=== PATIENT | male | born 1965 | race African-American/Black ===

== ENCOUNTER 2016-06-26 14:54 | Inpatient (IN) | payer OTHER ==
[2016-06-26 17:49] VITALS: BMI 20.3
--- NOTE | 2016-06-26 19:26 | HP ---
COWS - Scale Resting Pulse: 1= PA 81-100 Sweatin= Chills/Flushing Restless Observation: 1= Difficult to Sit Still Pupil Size: 0= Normal to Room Light Bone or Joint Aches: 1= Mild Discomfort Runny Nose/ Eye Tearin= Nasal Congestion GI Upset > 30mins: 2= Nausea/Diarrhea Tremor Observation: 2= Slight Tremor Visible Yawning Observation: 1= 1-2x During Session Anxiety or Irritability: 1=Feels Anxious/Irritable Goose Flesh Skin: 3=Piloerection COWS Score: 14 Admission [facility] Chief Complaint: WITHDRAWAL SX Allergies/Adverse Reactions: Allergies Allergy/AdvReac Type Severity Reaction Status Date / Time No Known Allergies Allergy Verified 06/26/16 19:57 History of Present Illness: 51 YEARS OLD MALE WITH LONG HISTORY OF OPIATE NICOTINE DEPENDENCE DENIES MEDICAL DENIES MENTAL IS ADMITTED TO DETOX Exam Limitations: No Limitations - Ebola screening Have you traveled outside of the country in the last 21 days: No Have you had contact with anyone from an Ebola affected area: No Have you been sick,other than usual withdrawal symptoms: No Do you have a fever: No - Review of Systems Constitutional: Chills, Loss of Appetite, Changes in sleep, Unintentional Wgt. Loss, Unexplained wgt Loss EENT: reports: No Symptoms Reported, Hearing Loss (LEFT EAR) Respiratory: reports: SOB with Exertion Cardiac: reports: No Symptoms Reported GI: reports: Diarrhea, Nausea, Poor Appetite, Poor Fluid Intake, Abdominal cramping : reports: No Symptoms Reported Musculoskeletal: reports: Back Pain, Joint Pain, Muscle Pain, Neck Pain Integumentary: reports: No Symptoms Reported Neuro: reports: Tremors Endocrine: reports: No Symptoms Reported Hematology: reports: No Symptoms Reported Psychiatric: reports: Judgement Intact, Mood/Affect Appropiate, Orientated x3 Other Systems: Reviewed and Negative Patient History - Patient Medical History Hx Anemia: No Hx Asthma: No Hx Chronic Obstructive Pulmonary Disease (COPD): No Hx Cancer: No Hx Cardiac Disorders: No Hx Congestive Heart Failure: No Hx Hypertension: No Hx Hypercholesterolemia: No Hx Pacemaker: No HX Cerebrovascular Accident: No Hx Seizures: No Hx Dementia: No Hx Diabetes: No Hx Gastrointestinal Disorders: No Hx Liver Disease: No Hx Genitourinary Disorders: No Hx Sexually Transmitted Disorders: No Hx Renal Disease (ESRD): No Hx Thyroid Disease: No Hx Human Immunodeficiency Virus (HIV): No Hx Hepatitis C: No Hx Depression: No Hx Suicide Attempt: No Hx Bipolar Disorder: No Hx Schizophrenia: No - Patient Surgical History Past Surgical History: Yes Hx Neurologic Surgery: No Hx Cataract Extraction: No Hx Cardiac Surgery: No Hx Lung Surgery: No Hx Breast Surgery: No Hx Breast Biopsy: No Hx Abdominal Surgery: No Hx Appendectomy: No Hx Cholecystectomy: No Hx Genitourinary Surgery: No Hx Orthopedic Surgery: Yes (RT ARM) Other Surgical History: RT ARM @14YRS Anesthesia Reaction: No - PPD History Previous Implant?: Yes Documented Results: Negative w/o proof Implanted On Prior R Admission?: Yes Date: 10/31/15 PPD to be Administered?: No - Smoking Cessation Smoking history: Current every day smoker Have you smoked in the past 12 months: Yes Aproximately how many cigarettes per day: 20 Cigars Per Day: 0 Hx Chewing Tobacco Use: No Initiated information on smoking cessation: Yes 'Breaking Loose' booklet given: 06/26/16 - Substance & Tx. History Hx Alcohol Use: No Hx Substance Use: Yes Substance Use Type: Cocaine, Marijuana, Opiates Hx Substance Use Treatment: Yes - Substances Abused Heroin Route: Inhalation Frequency: Daily Amount used: 20 BAGS Date of Last Use: 06/26/16 Family Disease History - Family Disease History Family History: Denies Admission Physical Exam [facility] - Vital Signs Vital Signs: Vital Signs - 24 hr 06/26/16 17:45 Temperature 98.5 F Pulse Rate 86 Respiratory 20 Rate Blood Pressure 124/87 - Physical General Appearance: Yes: Appropriately Dressed, Mild Distress, Thin, Tremorous, Irritable, Sweating, Anxious HEENTM: Yes: Hearing grossly Normal, Normal ENT Inspection, Normocephalic, Normal Voice Respiratory: Yes: Chest Non-Tender, Lungs Clear, Normal Breath Sounds, No Respiratory Distress, No Accessory Muscle Use Neck: Yes: Supple, Trachea in good position Breast: Yes: Breasts Symetrical Cardiology: Yes: Regular Rhythm, Regular Rate, S1, S2 Abdominal: Yes: Non Tender, Soft Genitourinary: Yes: Within Normal Limits Back: Yes: Normal Inspection Musculoskeletal: Yes: full range of Motion, Gait Steady, Back pain, Muscle Pain Extremities: Yes: Normal Range of Motion, Non-Tender, Tremors Neurological: Yes: Fully Oriented, Alert, Motor Strength 5/5, Normal Mood/Affect , Normal Response Integumentary: Yes: Warm Lymphatic: Yes: Within Normal Limits - Addiitonal Findings: PATIENT IS UNCOOPERATIVE THROUGH OUT THE PHYSICAL EXAMINE OPPOSITIONAL - Diagnostic (1) Nicotine dependence Current Visit: Yes Status: Acute Qualifiers: Nicotine product type: cigarettes Substance use status: in withdrawal Qualified Code(s): F17.213 - Nicotine dependence, cigarettes, with withdrawal (2) Opioid dependence with withdrawal Current Visit: Yes Status: Acute (3) Cocaine dependence, uncomplicated Current Visit: Yes Status: Chronic (4) Cannabis dependence, uncomplicated Current Visit: Yes Status: Chronic (5) Left ear hearing loss Current Visit: Yes Status: Chronic Qualifiers: Hearing loss type: conductive Contralateral hearing status: unspecified Qualified Code(s): H90.12 - Conductive hearing loss, unilateral, left ear, with unrestricted hearing on the contralateral side Cleared for Admission [facility] - Detox or Rehab [facility] Level of Care: Medically Managed Detox Regimen/Protocol: Methadone [facility] Breath Alcohol Content Breath Alcohol Content: 0 Urine Drug Screen - Results Drug Screen Negative: No Urine Drug Screen Results: THC-Marijuana, MABEL-Cocaine, OPI-Opiates, AMP- Amphetamines
[2016-06-26] MEDS ORDERED: MAG HYDROX/AL HYDROX/SIMETH 30 ML UNIT-DOSE CUP PO PRN (19:31)
[2016-06-26] MEDS ORDERED: LOPERAMIDE HCL 2 MG CAPSULE PO PRN (19:31)
[2016-06-26] MEDS ORDERED: NICOTINE POLACRILEX 4 MG GUM BC PRN (19:31)
[2016-06-26] MEDS ORDERED: MAGNESIUM HYDROX 2400MG/30ML ORAL SUSPENSION 30 ML CUP PO PRN (19:31)
[2016-06-26] MEDS ORDERED: diphenhydrAMINE HCL 50 MG CAPSULE PO PRN (19:31)
[2016-06-26] MEDS ORDERED: MAGNESIUM CITRATE 300 ML BOTTLE PO PRN (19:31)
[2016-06-26] MEDS ORDERED: MENTHOL/PHENOL 1 EACH UD MM PRN (19:31)
[2016-06-26] MEDS ORDERED: guaiFENesin/D-METHORPHAN HB 10 ML UNIT-DOSE CUPS PO PRN (19:31)
[2016-06-26] MEDS ORDERED: IBUPROFEN 400 MG TABLET (FP) PO PRN (19:31)
[2016-06-26] MEDS ORDERED: METHADONE HCL 10 MG TABLET (FOR DETOX USE ONLY) PO ONE ×2 (19:31→23:00)
[2016-06-26] MEDS ORDERED: ACETAMINOPHEN 325 MG TABLET (FP) PO PRN (19:31)
[2016-06-26] MEDS ORDERED: P-EPHED 60MG/TRIPROLIDI 2.5MG TABLET PO PRN (19:31)
[2016-06-26] MEDS: diazePAM 5 MG TABLET PO PRN (21:18)
[2016-06-26] MEDS: THIAMINE HCL 100 MG TABLET (FP) PO SCH (23:03)
[2016-06-27 03:01] LABS: URINE APPEARANCE CLEAR; URINE BILIRUBIN NEGATIVE (NEGATIVE); URINE BLOOD NEGATIVE (NEGATIVE); URINE COLOR YELLOW; URINE GLUCOSE (UA) NEGATIVE (NEGATIVE); URINE KETONE NEGATIVE (NEGATIVE); URINE LEUK ESTERASE NEGATIVE (NEGATIVE); URINE NITRITE NEGATIVE (NEGATIVE); URINE PROTEIN NEGATIVE (NEGATIVE); URINE UROBILINOGEN NEGATIVE E.U./dl (0.2-1.0)
[2016-06-27 09:52] LABS: MCH 27.3 pg (25.7-33.7); MCHC 32.4 g/dl (32.0-35.9); MEAN CELL VOLUME 84.3 fl (80-96); MEAN PLT VOLUME 8.7 fl (7.5-11.1); PLATELET COUNT 282 K/MM3 (134-434); RDW 14.8 % (11.9-15.9); WHITE BLOOD COUNT 8.1 K/mm3 (4.0-10.0)
[2016-06-27 09:59] LABS: ALBUMIN 2.9 g/dl (3.4-5.0)
[2016-06-27] MEDS ORDERED: METHADONE HCL 10 MG TABLET (FOR DETOX USE ONLY) PO ONE (10:00)
--- NOTE | 2016-06-27 10:01 | PN ---
[facility] CIWA - CIWA Score Nausea/Vomitin-No Nausea/No Vomiting Muscle Tremors: 4-Moderate,w/Arms Extend Anxiety: 4-Mod. Anxious/Guarded Agitation: 4-Moderately Restless Paroxysmal Sweats: 2 Orientation: 0-Oriented Tacttile Disturbances: 3-Moderate Itch/Numb/Burn Auditory Disturbances: 0-None Visual Disturbances: 0-None Headache: 0-None Present CIWA-Ar Total Score: 17 BHS Progress Note (SOAP) Subjective: ANXIETY,SWEATS,FATIGUE. Objective: 06/27/16 10:00 Vital Signs Temperature 97.2 F L 06/27/16 09:21 Pulse Rate 71 06/27/16 09:21 Respiratory Rate 18 06/27/16 09:21 Blood Pressure 113/78 06/27/16 09:21 O2 Sat by Pulse Oximetry (%) Laboratory Last Values WBC 8.1 K/mm3 (4.0-10.0) 06/27/16 07:00 RBC 4.45 M/mm3 (4.00-5.60) 06/27/16 07:00 Hgb 12.1 GM/dL (11.7-16.9) 06/27/16 07:00 Hct 37.5 % (35.4-49) 06/27/16 07:00 MCV 84.3 fl (80-96) 06/27/16 07:00 MCHC 32.4 g/dl (32.0-35.9) 06/27/16 07:00 RDW 14.8 % (11.9-15.9) 06/27/16 07:00 Plt Count 282 K/MM3 (134-434) 06/27/16 07:00 MPV 8.7 fl (7.5-11.1) 06/27/16 07:00 Urine Color Yellow 06/26/16 23:10 Urine Appearance Clear 06/26/16 23:10 Urine pH 5.0 (5.0-8.0) 06/26/16 23:10 Ur Specific [place] 1.021 (1.001-1.035) 06/26/16 23:10 Urine Protein Negative (NEGATIVE) 06/26/16 23:10 Urine Glucose (UA) Negative (NEGATIVE) 06/26/16 23:10 Urine Ketones Negative (NEGATIVE) 06/26/16 23:10 Urine Blood Negative (NEGATIVE) 06/26/16 23:10 Urine Nitrite Negative (NEGATIVE) 06/26/16 23:10 Urine Bilirubin Negative (NEGATIVE) 06/26/16 23:10 Urine Urobilinogen Negative E.U./dl (0.2-1.0) 06/26/16 23:10 Ur Leukocyte Esterase Negative (NEGATIVE) 06/26/16 23:10 Assessment: 06/27/16 10:00 WITHDRAWAL SX Plan: CONTINUE DETOX
[2016-06-27 10:27] LABS: ALK PHOS 93 U/L (45-117); ANION GAP 5 (8-16); BILIRUBIN,TOTAL 0.2 mg/dL (0.2-1.0); CO2 28 mmol/L (21-32); COCKROFT - GAULT 104.91; CREATININE 0.7 mg/dL (0.7-1.3); GLUCOSE,RANDOM 104 mg/dL (74-106); SGOT/AST 23 U/L (15-37); SGPT/ALT 26 U/L (12-78); TOT PROT 6.8 g/dl (6.4-8.2)
[2016-06-27] MEDS: PRENATAL VITAMINS W/ FOLIC ACID TABLET (FP) PO SCH (10:34)
[2016-06-27] MEDS: NICOTINE 21 MG/24 HOURS TOPICAL PATCH TD SCH (10:34)
--- NOTE | 2016-06-27 13:12 | EKG ---
Test Reason : Blood Pressure : / mmHG Vent. Rate : 077 BPM Atrial Rate : 077 BPM P-R Int : 200 ms QRS Dur : 104 ms QT Int : 372 ms P-R-T Axes : 073 076 071 degrees QTc Int : 420 ms NORMAL SINUS RHYTHM POSSIBLE LEFT ATRIAL ENLARGEMENT LEFT VENTRICULAR HYPERTROPHY RSR' OR QR PATTERN IN V1 SUGGESTS RIGHT VENTRICULAR CONDUCTION DELAY ABNORMAL ECG NO PREVIOUS ECGS AVAILABLE Confirmed by CRISTINO NIETO, MARI ([id number]) on 06/27/2016 1:12:34 PM Referred By: Confirmed By:MARI GREGG MD
[2016-06-27] MEDS: diazePAM 5 MG TABLET PO PRN (22:28)
[2016-06-27] MEDS: THIAMINE HCL 100 MG TABLET (FP) PO SCH (22:28)
[2016-06-28] MEDS ORDERED: METHADONE HCL 5 MG TABLET (FOR DETOX USE ONLY) PO ONE (10:00)
[2016-06-28] MEDS ORDERED: TRIMETHOBENZAMIDE HCL 200MG/2ML INJ IM PRN (10:36)
[2016-06-28] MEDS ORDERED: ONDANSETRON *ODT* 4 MG TABLET SL PRN (10:36)
[2016-06-28] MEDS: NICOTINE 21 MG/24 HOURS TOPICAL PATCH TD SCH (10:40)
[2016-06-28] MEDS: PRENATAL VITAMINS W/ FOLIC ACID TABLET (FP) PO SCH (10:40)
--- NOTE | 2016-06-28 11:57 | PN ---
[facility] CIWA - CIWA Score Nausea/Vomitin-Int. Nausea w/Dry Heave Muscle Tremors: 5 Anxiety: 5 Agitation: 4-Moderately Restless Paroxysmal Sweats: 1-Minimal Palms Moist Orientation: 0-Oriented Tacttile Disturbances: 3-Moderate Itch/Numb/Burn Auditory Disturbances: 0-None Visual Disturbances: 0-None Headache: 0-None Present CIWA-Ar Total Score: 22 BHS Progress Note (SOAP) Subjective: NAUSEA, ANXIETY,TREMORS,CHILLS,INTERMITTENT SLEEP. Objective: 06/28/16 11:56 Vital Signs Temperature 97.6 F 06/28/16 10:52 Pulse Rate 68 06/28/16 10:52 Respiratory Rate 18 06/28/16 10:52 Blood Pressure 118/84 06/28/16 10:52 O2 Sat by Pulse Oximetry (%) Laboratory Last Values WBC 8.1 K/mm3 (4.0-10.0) 06/27/16 07:00 RBC 4.45 M/mm3 (4.00-5.60) 06/27/16 07:00 Hgb 12.1 GM/dL (11.7-16.9) 06/27/16 07:00 Hct 37.5 % (35.4-49) 06/27/16 07:00 MCV 84.3 fl (80-96) 06/27/16 07:00 MCHC 32.4 g/dl (32.0-35.9) 06/27/16 07:00 RDW 14.8 % (11.9-15.9) 06/27/16 07:00 Plt Count 282 K/MM3 (134-434) 06/27/16 07:00 MPV 8.7 fl (7.5-11.1) 06/27/16 07:00 Sodium 138 mmol/L (136-145) 06/27/16 07:00 Potassium 4.2 mmol/L (3.5-5.1) 06/27/16 07:00 Chloride 105 mmol/L (98-107) 06/27/16 07:00 Carbon Dioxide 28 mmol/L (21-32) 06/27/16 07:00 Anion Gap 5 (8-16) L 06/27/16 07:00 BUN 12 mg/dL (7-18) D 06/27/16 07:00 Creatinine 0.7 mg/dL (0.7-1.3) 06/27/16 07:00 Creat Clearance w eGFR > 60 (>60) 06/27/16 07:00 Random Glucose 104 mg/dL (74-106) 06/27/16 07:00 Calcium 9.0 mg/dL (8.5-10.1) 06/27/16 07:00 Total Bilirubin 0.2 mg/dL (0.2-1.0) D 06/27/16 07:00 AST 23 U/L (15-37) D 06/27/16 07:00 ALT 26 U/L (12-78) D 06/27/16 07:00 Alkaline Phosphatase 93 U/L (45-117) 06/27/16 07:00 Total Protein 6.8 g/dl (6.4-8.2) 06/27/16 07:00 Albumin 2.9 g/dl (3.4-5.0) L 06/27/16 07:00 Urine Color Yellow 06/26/16 23:10 Urine Appearance Clear 06/26/16 23:10 Urine pH 5.0 (5.0-8.0) 06/26/16 23:10 Ur Specific [place] 1.021 (1.001-1.035) 06/26/16 23:10 Urine Protein Negative (NEGATIVE) 06/26/16 23:10 Urine Glucose (UA) Negative (NEGATIVE) 06/26/16 23:10 Urine Ketones Negative (NEGATIVE) 06/26/16 23:10 Urine Blood Negative (NEGATIVE) 06/26/16 23:10 Urine Nitrite Negative (NEGATIVE) 06/26/16 23:10 Urine Bilirubin Negative (NEGATIVE) 06/26/16 23:10 Urine Urobilinogen Negative E.U./dl (0.2-1.0) 06/26/16 23:10 Ur Leukocyte Esterase Negative (NEGATIVE) 06/26/16 23:10 RPR Titer Nonreactive (NONREACTIVE) 06/27/16 07:00 Assessment: 06/28/16 11:56 WITHDRAWAL SX Plan: CONTINUE DETOX ZOFRAN DIRECTED FOR NAUSEA OR VOMITING
[2016-06-28] MEDS: THIAMINE HCL 100 MG TABLET (FP) PO SCH (22:35)
[2016-06-28] MEDS: diazePAM 5 MG TABLET PO PRN (22:36)
[2016-06-29] MEDS ORDERED: METHADONE HCL 5 MG TABLET (FOR DETOX USE ONLY) PO ONE (10:00)
--- NOTE | 2016-06-29 10:26 | PN ---
BHS Progress Note (SOAP) Subjective: Sweating,interrupted sleep,restless Objective: 06/29/16 10:24 Vital Signs - 8 hr 06/29/16 06/29/16 03:30 10:03 Temperature 96.4 F L Pulse Rate 77 Respiratory 18 18 Rate Blood Pressure 115/81 Laboratory Last Values WBC 8.1 K/mm3 (4.0-10.0) 06/27/16 07:00 RBC 4.45 M/mm3 (4.00-5.60) 06/27/16 07:00 Hgb 12.1 GM/dL (11.7-16.9) 06/27/16 07:00 Hct 37.5 % (35.4-49) 06/27/16 07:00 MCV 84.3 fl (80-96) 06/27/16 07:00 MCHC 32.4 g/dl (32.0-35.9) 06/27/16 07:00 RDW 14.8 % (11.9-15.9) 06/27/16 07:00 Plt Count 282 K/MM3 (134-434) 06/27/16 07:00 MPV 8.7 fl (7.5-11.1) 06/27/16 07:00 Sodium 138 mmol/L (136-145) 06/27/16 07:00 Potassium 4.2 mmol/L (3.5-5.1) 06/27/16 07:00 Chloride 105 mmol/L (98-107) 06/27/16 07:00 Carbon Dioxide 28 mmol/L (21-32) 06/27/16 07:00 Anion Gap 5 (8-16) L 06/27/16 07:00 BUN 12 mg/dL (7-18) D 06/27/16 07:00 Creatinine 0.7 mg/dL (0.7-1.3) 06/27/16 07:00 Creat Clearance w eGFR > 60 (>60) 06/27/16 07:00 Random Glucose 104 mg/dL (74-106) 06/27/16 07:00 Calcium 9.0 mg/dL (8.5-10.1) 06/27/16 07:00 Total Bilirubin 0.2 mg/dL (0.2-1.0) D 06/27/16 07:00 AST 23 U/L (15-37) D 06/27/16 07:00 ALT 26 U/L (12-78) D 06/27/16 07:00 Alkaline Phosphatase 93 U/L (45-117) 06/27/16 07:00 Total Protein 6.8 g/dl (6.4-8.2) 06/27/16 07:00 Albumin 2.9 g/dl (3.4-5.0) L 06/27/16 07:00 Urine Color Yellow 06/26/16 23:10 Urine Appearance Clear 06/26/16 23:10 Urine pH 5.0 (5.0-8.0) 06/26/16 23:10 Ur Specific [place] 1.021 (1.001-1.035) 06/26/16 23:10 Urine Protein Negative (NEGATIVE) 06/26/16 23:10 Urine Glucose (UA) Negative (NEGATIVE) 06/26/16 23:10 Urine Ketones Negative (NEGATIVE) 06/26/16 23:10 Urine Blood Negative (NEGATIVE) 06/26/16 23:10 Urine Nitrite Negative (NEGATIVE) 06/26/16 23:10 Urine Bilirubin Negative (NEGATIVE) 06/26/16 23:10 Urine Urobilinogen Negative E.U./dl (0.2-1.0) 06/26/16 23:10 Ur Leukocyte Esterase Negative (NEGATIVE) 06/26/16 23:10 RPR Titer Nonreactive (NONREACTIVE) 06/27/16 07:00 labs noted Assessment: 06/29/16 10:25 Withdrawal sx. Plan: Continue detox
[2016-06-29] MEDS: PRENATAL VITAMINS W/ FOLIC ACID TABLET (FP) PO SCH (10:53)
[2016-06-29] MEDS: NICOTINE 21 MG/24 HOURS TOPICAL PATCH TD SCH (10:54)
[2016-06-29 13:35] VITALS: BP 112/79; PULSE 62; TEMP 97.7
--- NOTE | 2016-06-29 20:14 | DS ---
[facility] Detox Discharge Summary Admission Date: 06/26/16 Discharge Date: 06/29/16 - History Present History: Cannabis Dependence, Cocaine Dependence, Opioid Dependence Pertinent Past History: nicotine dependence - Physical Exam Results Vital Signs: Vital Signs Temperature 97.7 F 06/29/16 13:34 Pulse Rate 62 06/29/16 13:34 Respiratory Rate 18 06/29/16 13:34 Blood Pressure 112/79 06/29/16 13:34 O2 Sat by Pulse Oximetry (%) Pertinent Admission Physical Exam Findings: withdrawal sx Laboratory Last Values WBC 8.1 K/mm3 (4.0-10.0) 06/27/16 07:00 RBC 4.45 M/mm3 (4.00-5.60) 06/27/16 07:00 Hgb 12.1 GM/dL (11.7-16.9) 06/27/16 07:00 Hct 37.5 % (35.4-49) 06/27/16 07:00 MCV 84.3 fl (80-96) 06/27/16 07:00 MCHC 32.4 g/dl (32.0-35.9) 06/27/16 07:00 RDW 14.8 % (11.9-15.9) 06/27/16 07:00 Plt Count 282 K/MM3 (134-434) 06/27/16 07:00 MPV 8.7 fl (7.5-11.1) 06/27/16 07:00 Sodium 138 mmol/L (136-145) 06/27/16 07:00 Potassium 4.2 mmol/L (3.5-5.1) 06/27/16 07:00 Chloride 105 mmol/L (98-107) 06/27/16 07:00 Carbon Dioxide 28 mmol/L (21-32) 06/27/16 07:00 Anion Gap 5 (8-16) L 06/27/16 07:00 BUN 12 mg/dL (7-18) D 06/27/16 07:00 Creatinine 0.7 mg/dL (0.7-1.3) 06/27/16 07:00 Creat Clearance w eGFR > 60 (>60) 06/27/16 07:00 Random Glucose 104 mg/dL (74-106) 06/27/16 07:00 Calcium 9.0 mg/dL (8.5-10.1) 06/27/16 07:00 Total Bilirubin 0.2 mg/dL (0.2-1.0) D 06/27/16 07:00 AST 23 U/L (15-37) D 06/27/16 07:00 ALT 26 U/L (12-78) D 06/27/16 07:00 Alkaline Phosphatase 93 U/L (45-117) 06/27/16 07:00 Total Protein 6.8 g/dl (6.4-8.2) 06/27/16 07:00 Albumin 2.9 g/dl (3.4-5.0) L 06/27/16 07:00 Urine Color Yellow 06/26/16 23:10 Urine Appearance Clear 06/26/16 23:10 Urine pH 5.0 (5.0-8.0) 06/26/16 23:10 Ur Specific [place] 1.021 (1.001-1.035) 06/26/16 23:10 Urine Protein Negative (NEGATIVE) 06/26/16 23:10 Urine Glucose (UA) Negative (NEGATIVE) 06/26/16 23:10 Urine Ketones Negative (NEGATIVE) 06/26/16 23:10 Urine Blood Negative (NEGATIVE) 06/26/16 23:10 Urine Nitrite Negative (NEGATIVE) 06/26/16 23:10 Urine Bilirubin Negative (NEGATIVE) 06/26/16 23:10 Urine Urobilinogen Negative E.U./dl (0.2-1.0) 06/26/16 23:10 Ur Leukocyte Esterase Negative (NEGATIVE) 06/26/16 23:10 RPR Titer Nonreactive (NONREACTIVE) 06/27/16 07:00 lab noted - Treatment Hospital Course: Detox Protocol Followed, Responded well - Medication Discharge Medications: Ambulatory Orders NK [No Known Home Medication] 10/29/15 - Diagnosis (1) Nicotine dependence Status: Acute Qualifiers: Nicotine product type: cigarettes Substance use status: in withdrawal Qualified Code(s): F17.213 - Nicotine dependence, cigarettes, with withdrawal (2) Opioid dependence with withdrawal Status: Acute (3) Cocaine dependence, uncomplicated Status: Chronic (4) Cannabis dependence, uncomplicated Status: Chronic (5) Left ear hearing loss Status: Chronic Qualifiers: Hearing loss type: conductive Contralateral hearing status: unspecified Qualified Code(s): H90.12 - Conductive hearing loss, unilateral, left ear, with unrestricted hearing on the contralateral side - AMA Did Patient Leave Against Medical Advice: Yes
[2016-06-30] MEDS ORDERED: METHADONE HCL 10 MG TABLET (FOR DETOX USE ONLY) PO ONE (10:00)
[2016-07-01] MEDS ORDERED: METHADONE HCL 5 MG TABLET (FOR DETOX USE ONLY) PO ONE (06:00)
== END 2016-06-29 18:20 | disposition left against medical advice (07) | DRG 770 ==
LOC: YASAS 14:54 → Y3N 19:52
PROVIDERS: ADMIT Internal Medicine; ATTEND Internal Medicine
PROC: HZ2ZZZZ Detoxification Services for Substance Abuse Treatment (ICD-10-PCS; principal; 2016-06-29)
DX: F11.23 Opioid dependence with withdrawal (principal); F14.20 Cocaine dependence, uncomplicated; F12.20 Cannabis dependence, uncomplicated; F17.213 Nicotine dependence, cigarettes, with withdrawal; H90.12 Conductive hearing loss, unilateral, left ear, with unrestricted hearing on the contralateral side
CPT/HCPCS: 36415; 80053; 81003; 85027; 86593; 93005; 93010

== ENCOUNTER 2016-11-29 20:19 | Inpatient (IN) | payer OTHER ==
[2016-11-29 22:30] VITALS: BMI 18.2
--- NOTE | 2016-11-29 22:37 | HP ---
COWS - Scale Resting Pulse: 2= SD 101-120 Sweatin= Chills/Flushing Restless Observation: 3= Extraneous Movement Pupil Size: 0= Normal to Room Light Bone or Joint Aches: 2= Severe Diffuse Aches Runny Nose/ Eye Tearin= Runny Nose/Eyes GI Upset > 30mins: 2= Nausea/Diarrhea Tremor Observation: 2= Slight Tremor Visible Yawning Observation: 0= None Anxiety or Irritability: 2=Irritable/Anxious Goose Flesh Skin: 0=Smooth Skin COWS Score: 16 Admission [facility] Chief Complaint: withdrawal sx Allergies/Adverse Reactions: Allergies Allergy/AdvReac Type Severity Reaction Status Date / Time quetiapine fumarate Allergy Severe SEIZURE Verified 11/29/16 23:08 [From Seroquel] History of Present Illness: 51 years old male with long history of opiate nicotine dependence has dry skin weight loss and ptsd is admitted to detox Exam Limitations: No Limitations - Ebola screening Have you traveled outside of the country in the last 21 days: No Have you had contact with anyone from an Ebola affected area: No Have you been sick,other than usual withdrawal symptoms: No Do you have a fever: No - Review of Systems Constitutional: Loss of Appetite, Changes in sleep, Unintentional Wgt. Loss, Unexplained wgt Loss EENT: reports: Blurred Vision (eye glasses) Respiratory: reports: No Symptoms reported Cardiac: reports: No Symptoms Reported GI: reports: Nausea, Poor Appetite, Poor Fluid Intake, Abdominal cramping : reports: No Symptoms Reported Musculoskeletal: reports: Back Pain, Joint Pain, Muscle Pain, Neck Pain Integumentary: reports: Dryness (hands) Neuro: reports: Seizure (last episode 2008), Tremors Endocrine: reports: No Symptoms Reported Hematology: reports: No Symptoms Reported Psychiatric: reports: Judgement Intact, Orientated x3, Depressed Other Systems: Reviewed and Negative Patient History - Patient Medical History Hx Anemia: No Hx Asthma: No Hx Chronic Obstructive Pulmonary Disease (COPD): No Hx Cancer: No Hx Cardiac Disorders: No Hx Congestive Heart Failure: No Hx Hypertension: No Hx Hypercholesterolemia: No Hx Pacemaker: No HX Cerebrovascular Accident: No Hx Seizures: No Hx Dementia: No Hx Diabetes: No Hx Gastrointestinal Disorders: No Hx Liver Disease: No Hx Genitourinary Disorders: No Hx Sexually Transmitted Disorders: No Hx Renal Disease (ESRD): No Hx Thyroid Disease: No Hx Human Immunodeficiency Virus (HIV): No Hx Hepatitis C: No Hx Depression: Yes Hx Suicide Attempt: No Hx Bipolar Disorder: No Hx Schizophrenia: No - Patient Surgical History Past Surgical History: Yes Hx Neurologic Surgery: No Hx Cataract Extraction: No Hx Cardiac Surgery: No Hx Lung Surgery: No Hx Breast Surgery: No Hx Breast Biopsy: No Hx Abdominal Surgery: No Hx Appendectomy: No Hx Cholecystectomy: No Hx Genitourinary Surgery: No Hx Orthopedic Surgery: Yes (RT ARM) Other Surgical History: RT ARM @14YRS Anesthesia Reaction: No - PPD History Previous Implant?: Yes Documented Results: Negative w/proof Implanted On Prior R Admission?: Yes Date: 10/31/15 PPD to be Administered?: Yes - Smoking Cessation Smoking history: Current every day smoker Have you smoked in the past 12 months: Yes Aproximately how many cigarettes per day: 40 Cigars Per Day: 0 Hx Chewing Tobacco Use: No Initiated information on smoking cessation: Yes 'Breaking Loose' booklet given: 11/29/16 - Substance & Tx. History Hx Alcohol Use: No Hx Substance Use: Yes Substance Use Type: Cocaine, Heroin, Marijuana Hx Substance Use Treatment: Yes (06/26-06/29/16 [facility] - Substances Abused Heroin Route: Inhalation Frequency: Daily Amount used: 20 bags Age of first use: 28 Date of Last Use: 11/29/16 Family Disease History - Family Disease History Family Disease History: [place]: Father (), Mother (), Other: Father , Mother Admission Physical Exam BHS - Vital Signs Vital Signs: Vital Signs - 24 hr 11/29/16 22:28 Temperature 98.7 F Pulse Rate 101 H Respiratory 16 Rate Blood Pressure 123/84 - Physical General Appearance: Yes: Appropriately Dressed, Moderate Distress, Thin, Tremorous, Irritable, Sweating, Anxious HEENTM: Yes: Hearing grossly Normal, Normal ENT Inspection, Normocephalic, Normal Voice, Other (needs eye glassess for reading) Respiratory: Yes: Chest Non-Tender, Normal Breath Sounds, No Respiratory Distress, No Accessory Muscle Use, Wheezing, Hyperresonant Neck: Yes: Supple, Trachea in good position Breast: Yes: Breasts Symetrical Cardiology: Yes: Regular Rhythm, S1, S2, Tachycardia Abdominal: Yes: Non Tender, Soft, Increased Bowel Sounds Genitourinary: Yes: Within Normal Limits Back: Yes: Normal Inspection Musculoskeletal: Yes: full range of Motion, Gait Steady, Back pain, Muscle Pain Extremities: Yes: Normal Inspection (skin dryness both hands), Normal Range of Motion, Non-Tender, Tremors Neurological: Yes: Fully Oriented, Alert, Motor Strength 5/5, Normal Response, Depressed Affect Integumentary: Yes: Dry, Warm Lymphatic: Yes: Within Normal Limits - Diagnostic (1) Nicotine dependence Current Visit: Yes Status: Acute Qualifiers: Nicotine product type: cigarettes Substance use status: in withdrawal Qualified Code(s): F17.213 - Nicotine dependence, cigarettes, with withdrawal (2) Opioid dependence with withdrawal Current Visit: Yes Status: Acute (3) Cannabis dependence, uncomplicated Current Visit: Yes Status: Chronic (4) Cocaine dependence, uncomplicated Current Visit: Yes Status: Chronic (5) Weight decrease Current Visit: Yes Status: Acute (6) Dry skin Current Visit: Yes Status: Acute (7) PTSD (post-traumatic stress disorder) Current Visit: Yes Status: Suspected Cleared for Admission [facility] - Detox or Rehab [facility] Level of Care: Medically Managed Detox Regimen/Protocol: Methadone [facility] Breath Alcohol Content Breath Alcohol Content: 0 Urine Drug Screen - Results Drug Screen Negative: No Urine Drug Screen Results: THC-Marijuana, MABEL-Cocaine, OPI-Opiates, MET- Methamphetamine
[2016-11-29] MEDS ORDERED: MAGNESIUM CITRATE 300 ML BOTTLE PO PRN (22:48)
[2016-11-29] MEDS ORDERED: METHADONE HCL 10 MG TABLET (FOR DETOX USE ONLY) PO ONE ×2 (22:48→23:00)
[2016-11-29] MEDS ORDERED: P-EPHED 60MG/TRIPROLIDI 2.5MG TABLET PO PRN (22:48)
[2016-11-29] MEDS ORDERED: IBUPROFEN 400 MG TABLET (FP) PO PRN (22:48)
[2016-11-29] MEDS ORDERED: ACETAMINOPHEN 325 MG TABLET (FP) PO PRN (22:48)
[2016-11-29] MEDS ORDERED: MAG HYDROX/AL HYDROX/SIMETH 30 ML UNIT-DOSE CUP PO PRN (22:48)
[2016-11-29] MEDS ORDERED: MAGNESIUM HYDROX 2400MG/30ML ORAL SUSPENSION 30 ML CUP PO PRN (22:48)
[2016-11-29] MEDS ORDERED: LOPERAMIDE HCL 2 MG CAPSULE PO PRN (22:48)
[2016-11-29] MEDS ORDERED: diphenhydrAMINE HCL 50 MG CAPSULE PO PRN (22:48)
[2016-11-29] MEDS ORDERED: guaiFENesin/D-METHORPHAN HB 10 ML UNIT-DOSE CUPS PO PRN (22:48)
[2016-11-29] MEDS ORDERED: MENTHOL/PHENOL 1 EACH UD MM PRN (22:48)
[2016-11-29] MEDS ORDERED: NICOTINE POLACRILEX 4 MG GUM BC PRN (23:03)
[2016-11-29] MEDS: diazePAM 5 MG TABLET PO PRN (23:54)
[2016-11-30] MEDS: diazePAM 5 MG TABLET PO PRN ×2 (05:47→22:44)
[2016-11-30] MEDS ORDERED: METHADONE HCL 10 MG TABLET (FOR DETOX USE ONLY) PO ONE (10:00)
[2016-11-30 10:19] LABS: MCH 27.4 pg (25.7-33.7); MCHC 32.6 g/dl (32.0-35.9); MEAN PLT VOLUME 8.5 fl (7.5-11.1); PLATELET COUNT 300 K/MM3 (134-434); RDW 14.4 % (11.9-15.9); WHITE BLOOD COUNT 10.2 K/mm3 (4.0-10.0)
[2016-11-30 10:24] LABS: ALBUMIN 2.8 g/dl (3.4-5.0); ANION GAP 6 (8-16); BILIRUBIN,TOTAL 0.5 mg/dL (0.2-1.0); CALCIUM 9.1 mg/dL (8.5-10.1); CO2 31 mmol/L (21-32); CREATININE 0.7 mg/dL (0.7-1.3); GLUCOSE,RANDOM 86 mg/dL (74-106); SGOT/AST 30 U/L (15-37); SGPT/ALT 30 U/L (12-78); TOT PROT 6.8 g/dl (6.4-8.2)
[2016-11-30 10:25] LABS: ALK PHOS 83 U/L (45-117)
[2016-11-30 11:29] LABS: HIV 1 & 2 AB NEGATIVE; HIV 1 AGp24 NEGATIVE
--- NOTE | 2016-11-30 11:48 | CONSULT ---
[facility] Psychiatric Consult - Data Date of interview: 11/30/16 Admission source: [facility] Identifying data: This is 51 years old male with no psychiatric hospitalization history intoxicated with: Herpoin, Cocaine, Cannabis, Methamphetamins, Nicotine Substance Abuse History: - Smoking Cessation. Smoking history: Current every day smoker. Have you smoked in the past 12 months: Yes. Aproximately how many cigarettes per day: 40. Cigars Per Day: 0. Hx Chewing Tobacco Use: No. Initiated information on smoking cessation: Yes. 'Breaking Loose' booklet given : 11/29/16. - Substance & Tx. History. Hx Alcohol Use: No. Hx Substance Use: Yes. Substance Use Type: Cocaine, Heroin, Marijuana. Hx Substance Use Treatment: Yes (06/26-06/29/16 [facility]). - Substances Abused. Heroin. Route: Inhalation. Frequency: Daily. Amount used: 20 bags. Age of first use: 28. Date of Last Use: 11/29/16 Medical History: Weight loss history, Left hearing problem Psychiatric History: Patient reports history of PTSD, reports no medications taking prior to admission Physical/Sexual Abuse/Trauma History: Denies Additional Comment: Urine Drug Screen Results: THC-Marijuana, MABEL-Cocaine, OPI- Opiates, Methamphetamines Mental Status Exam - Mental Status Exam Alert and Oriented to: Person Cognitive Function: Fair Patient Appearance: Unkempt Mood: Sad Affect: Flat Patient Behavior: Sedated Speech Pattern: Delayed Voice Loudness: Mildly Soft/Quiet Thought Process: Circumstantial Thought Disorder: Being Controlled Hallucinations: Denies Suicidal Ideation: Denies Homicidal Ideation: Denies Insight/Judgement: Fair Sleep: Difficulty falling asleep Appetite: Weight loss Muscle strength/Tone: Mild Hypotonicity Gait/Station: Shuffling Additional Comments: Urine Drug Screen Results: THC-Marijuana, MABEL-Cocaine, OPI- Opiates, MET-Methamphetamine. Observation. Detox Unit Care Protocol Psychiatric Findings - Problem List ([place] 1, 2,3) (1) Nicotine dependence Current Visit: Yes Status: Acute Qualifiers: Nicotine product type: cigarettes Substance use status: in withdrawal Qualified Code(s): F17.213 - Nicotine dependence, cigarettes, with withdrawal (2) Opioid dependence with withdrawal Current Visit: Yes Status: Acute (3) Cannabis dependence, uncomplicated Current Visit: Yes Status: Chronic (4) Cocaine dependence, uncomplicated Current Visit: Yes Status: Chronic (5) PTSD (post-traumatic stress disorder) Current Visit: Yes Status: Suspected (6) Heroin dependence Current Visit: No Status: Acute (7) Opiate dependence Current Visit: No Status: Acute Qualifiers: Substance use status: uncomplicated Qualified Code(s): F11.20 - Opioid dependence, uncomplicated (8) Cocaine dependence Current Visit: No Status: Chronic Qualifiers: Substance use status: uncomplicated Qualified Code(s): F14.20 - Cocaine dependence, uncomplicated (9) Drug-induced mood disorder Current Visit: Yes Status: Acute - Initial Treatment Plan Initial Treatment Plan: Observation. Detox Unit Care Protocol
--- NOTE | 2016-11-30 11:59 | PN ---
[facility] COWS - Scale Resting Pulse: 1= [place] 81-100 Sweatin=Flushed/Facial Moisture Restless Observation: 0= Sits Still Pupil Size: 0= Normal to Room Light Bone or Joint Aches: 2= Severe Diffuse Aches Runny Nose/ Eye Tearin= Runny Nose/Eyes GI Upset > 30mins: 1= Stomach Cramp Tremor Observation of Outstretched Hands: 2= Slight Tremor Visible Yawning Observation: 2= >3x During Session Anxiety or Irritability: 1=Feels Anxious/Irritable Goose Flesh Skin: 0=Smooth Skin COWS Score: 13 BHS Progress Note (SOAP) Subjective: sleepy sweats tired interrupted sleep Objective: 11/30/16 11:58 Vital Signs Temperature 97.3 F L 11/30/16 10:00 Pulse Rate 66 11/30/16 10:00 Respiratory Rate 18 11/30/16 10:00 Blood Pressure 98/62 11/30/16 10:00 O2 Sat by Pulse Oximetry (%) Laboratory Tests 11/30/16 11/30/16 11/30/16 07:30 07:30 07:30 WBC 10.2 H RBC 4.43 Hgb 12.1 Hct 37.2 MCV 84.0 MCH 27.4 MCHC 32.6 RDW 14.4 Plt Count 300 MPV 8.5 Sodium 138 Potassium 3.7 Chloride 101 Carbon Dioxide 31 Anion Gap 6 L BUN 10 Creatinine 0.7 Creat Clearance w eGFR > 60 Random Glucose 86 Calcium 9.1 Total Bilirubin 0.5 D AST 30 D ALT 30 Alkaline Phosphatase 83 Total Protein 6.8 Albumin 2.8 L RPR Titer Nonreactive HIV 1&2 Antibody Screen HIV P24 Antigen 11/30/16 07:30 WBC RBC Hgb Hct MCV MCH MCHC RDW Plt Count MPV Sodium Potassium Chloride Carbon Dioxide Anion Gap BUN Creatinine Creat Clearance w eGFR Random Glucose Calcium Total Bilirubin AST ALT Alkaline Phosphatase Total Protein Albumin RPR Titer HIV 1&2 Antibody Screen Negative HIV P24 Antigen Negative labs pending aaox3 lying in bed no acute distress Assessment: 11/30/16 11:59 withdrawals sx Plan: continue detox increase fluids
[2016-11-30] MEDS: PRENATAL VITAMINS W/ FOLIC ACID TABLET (FP) PO SCH (13:42)
[2016-11-30] MEDS: NICOTINE 21 MG/24 HOURS TOPICAL PATCH TD SCH ×2 (13:52→13:53)
--- NOTE | 2016-11-30 15:58 | EKG ---
Test Reason : Blood Pressure : / mmHG Vent. Rate : 069 BPM Atrial Rate : 069 BPM P-R Int : 268 ms QRS Dur : 118 ms QT Int : 404 ms P-R-T Axes : 044 073 066 degrees QTc Int : 432 ms SINUS RHYTHM WITH 1ST DEGREE A-V BLOCK INCOMPLETE RIGHT BUNDLE BRANCH BLOCK BORDERLINE ECG WHEN COMPARED WITH ECG OF 26-JUN-2016 20:09, OR INTERVAL HAS INCREASED T WAVE AMPLITUDE HAS DECREASED IN LATERAL LEADS Confirmed by WEST BROCK MD ([id number]) on 11/30/2016 3:58:06 PM Referred By: Jeovanny Miranda Confirmed By:WEST BROCK MD
[2016-11-30] MEDS: THIAMINE HCL 100 MG TABLET (FP) PO SCH (22:44)
[2016-11-30] MEDS: MINERAL OIL/PETROLAT/WATER TOPICAL CREAM 113 GM JAR TP SCH (22:57)
--- NOTE | 2016-12-01 09:34 | PN ---
S COWS - Scale Resting Pulse: 0= [place] 80 or Below Sweatin= Chills/Flushing Restless Observation: 1= Difficult to Sit Still Pupil Size: 1= Pupils >than Normal Bone or Joint Aches: 1= Mild Discomfort Runny Nose/ Eye Tearin= Runny Nose/Eyes GI Upset > 30mins: 2= Nausea/Diarrhea Tremor Observation of Outstretched Hands: 2= Slight Tremor Visible Yawning Observation: 2= >3x During Session Anxiety or Irritability: 1=Feels Anxious/Irritable Goose Flesh Skin: 3=Piloerection COWS Score: 16 S Progress Note (SOAP) Subjective: nausea, sweats, interrupted sleep, anxiety, tremors Objective: 12/01/16 09:33 Vital Signs - 8 hr 12/01/16 12/01/16 03:30 07:11 Temperature 97.2 F L Pulse Rate 57 L Respiratory 18 18 Rate Blood Pressure 103/64 Laboratory Tests 11/30/16 11/30/16 11/30/16 07:30 07:30 07:30 WBC 10.2 H RBC 4.43 Hgb 12.1 Hct 37.2 MCV 84.0 MCH 27.4 MCHC 32.6 RDW 14.4 Plt Count 300 MPV 8.5 Sodium 138 Potassium 3.7 Chloride 101 Carbon Dioxide 31 Anion Gap 6 L BUN 10 Creatinine 0.7 Creat Clearance w eGFR > 60 Random Glucose 86 Calcium 9.1 Total Bilirubin 0.5 D AST 30 D ALT 30 Alkaline Phosphatase 83 Total Protein 6.8 Albumin 2.8 L RPR Titer Nonreactive HIV 1&2 Antibody Screen HIV P24 Antigen 11/30/16 07:30 WBC RBC Hgb Hct MCV MCH MCHC RDW Plt Count MPV Sodium Potassium Chloride Carbon Dioxide Anion Gap BUN Creatinine Creat Clearance w eGFR Random Glucose Calcium Total Bilirubin AST ALT Alkaline Phosphatase Total Protein Albumin RPR Titer HIV 1&2 Antibody Screen Negative HIV P24 Antigen Negative 12/01/16 09:33 Vital Signs - 24 hr 11/30/16 11/30/16 11/30/16 10:00 16:02 17:07 Temperature 97.3 F L 97 F L 97.0 F L Pulse Rate 66 79 73 Respiratory 18 18 16 Rate Blood Pressure 98/62 102/59 101/61 09/21/17 09/22/17 09/22/17 21:33 00:30 03:30 Temperature 98.1 F Pulse Rate 64 Respiratory 18 18 18 Rate Blood Pressure 100/61 12/01/16 07:11 Temperature 97.2 F L Pulse Rate 57 L Respiratory 18 Rate Blood Pressure 103/64 Assessment: 12/01/16 09:33 withdrawal sx Plan: cont detox, fluids, encourage ambulation
[2016-12-01] MEDS ORDERED: METHADONE HCL 5 MG TABLET (FOR DETOX USE ONLY) PO ONE (10:00)
[2016-12-01] MEDS: NICOTINE 21 MG/24 HOURS TOPICAL PATCH TD SCH (10:18)
[2016-12-01] MEDS: PRENATAL VITAMINS W/ FOLIC ACID TABLET (FP) PO SCH (10:18)
[2016-12-01 13:53] LABS: PH,URINE 7.5 (5.0-8.0); URINE APPEARANCE CLEAR; URINE BILIRUBIN NEGATIVE (NEGATIVE); URINE BLOOD NEGATIVE (NEGATIVE); URINE COLOR LT. YELLOW; URINE GLUCOSE (UA) NEGATIVE (NEGATIVE); URINE KETONE NEGATIVE (NEGATIVE); URINE LEUK ESTERASE NEGATIVE (NEGATIVE); URINE NITRITE NEGATIVE (NEGATIVE); URINE PROTEIN NEGATIVE (NEGATIVE); URINE UROBILINOGEN 0.2 mg/dL (0.2-1.0)
[2016-12-01] MEDS: diazePAM 5 MG TABLET PO PRN (14:02)
[2016-12-01] MEDS: MINERAL OIL/PETROLAT/WATER TOPICAL CREAM 113 GM JAR TP SCH (23:46)
[2016-12-01] MEDS: THIAMINE HCL 100 MG TABLET (FP) PO SCH (23:47)
[2016-12-02] MEDS ORDERED: METHADONE HCL 5 MG TABLET (FOR DETOX USE ONLY) PO ONE (10:00)
[2016-12-02] MEDS: PRENATAL VITAMINS W/ FOLIC ACID TABLET (FP) PO SCH (10:13)
[2016-12-02] MEDS: NICOTINE 21 MG/24 HOURS TOPICAL PATCH TD SCH ×2 (10:13→14:29)
--- NOTE | 2016-12-02 13:36 | PN ---
BHS Progress Note (SOAP) Subjective: alert,irritable,anxious,interrupted sleep,pain in the body and back Objective: 12/02/16 13:35 Vital Signs Temperature 97.2 F L 12/02/16 11:06 Pulse Rate 81 12/02/16 11:06 Respiratory Rate 16 12/02/16 11:06 Blood Pressure 136/80 12/02/16 11:06 O2 Sat by Pulse Oximetry (%) Assessment: 12/02/16 13:35 withdrawal symptom Plan: continue detox
[2016-12-02] MEDS: diazePAM 5 MG TABLET PO PRN ×2 (14:18→22:05)
[2016-12-02] MEDS: THIAMINE HCL 100 MG TABLET (FP) PO SCH (22:05)
[2016-12-02] MEDS: MINERAL OIL/PETROLAT/WATER TOPICAL CREAM 113 GM JAR TP SCH (22:05)
[2016-12-03] MEDS ORDERED: METHADONE HCL 10 MG TABLET (FOR DETOX USE ONLY) PO ONE (10:00)
--- NOTE | 2016-12-03 10:01 | PN ---
S Progress Note (SOAP) Subjective: ALERT,IRRITABLE,ANXIOUS,INTERRUPTED SLEEP Objective: 12/03/16 09:59 Vital Signs Temperature 97.3 F L 12/03/16 09:57 Pulse Rate 69 12/03/16 09:57 Respiratory Rate 18 12/03/16 09:57 Blood Pressure 120/72 12/03/16 09:57 O2 Sat by Pulse Oximetry (%) Assessment: 12/03/16 10:00 WITHDRAWAL SYMPTOM Plan: CONTINUE DETOX,DISCHARGE IN AM AT 0700
[2016-12-03] MEDS: PRENATAL VITAMINS W/ FOLIC ACID TABLET (FP) PO SCH (10:10)
[2016-12-03] MEDS: NICOTINE 21 MG/24 HOURS TOPICAL PATCH TD SCH (10:11)
[2016-12-03] MEDS: THIAMINE HCL 100 MG TABLET (FP) PO SCH (22:32)
[2016-12-03] MEDS: MINERAL OIL/PETROLAT/WATER TOPICAL CREAM 113 GM JAR TP SCH (22:32)
[2016-12-04] MEDS ORDERED: METHADONE HCL 5 MG TABLET (FOR DETOX USE ONLY) PO ONE (06:00)
[2016-12-04 06:02] VITALS: BP 96/65; PULSE 64; TEMP 97.5
--- NOTE | 2016-12-04 08:54 | DS ---
[facility] Detox Discharge Summary Admission Date: 11/29/16 Discharge Date: 12/04/16 - History Present History: Cannabis Dependence, Cocaine Dependence, Opioid Dependence - Physical Exam Results Vital Signs: Vital Signs Temperature 97.5 F L 12/04/16 06:01 Pulse Rate 64 12/04/16 06:01 Respiratory Rate 18 12/04/16 06:01 Blood Pressure 96/65 12/04/16 06:01 O2 Sat by Pulse Oximetry (%) - Treatment Hospital Course: Detox Protocol Followed, Detoxed Safely, Responded well, Discharged Condition Good, Rehab Referral Accepted - Medication Discharge Medications: Ambulatory Orders NK [No Known Home Medication] 10/29/15 - Diagnosis (1) Nicotine dependence Status: Chronic Qualifiers: Nicotine product type: cigarettes Substance use status: uncomplicated Qualified Code(s): F17.210 - Nicotine dependence, cigarettes, uncomplicated (2) Opioid dependence with withdrawal Status: Chronic (3) Weight decrease Status: Acute (4) Cannabis dependence, uncomplicated Status: Chronic (5) Cocaine dependence, uncomplicated Status: Chronic (6) Left ear hearing loss Status: Chronic Qualifiers: Hearing loss type: conductive Contralateral hearing status: unspecified Qualified Code(s): H90.12 - Conductive hearing loss, unilateral, left ear, with unrestricted hearing on the contralateral side - AMA Did Patient Leave Against Medical Advice: No
== END 2016-12-04 06:14 | disposition home or self-care (01) | DRG 773 ==
LOC: YASAS 20:19 → Y6N 23:11
PROVIDERS: ADMIT Internal Medicine; ATTEND Internal Medicine Addiction Medicine
PROC: HZ2ZZZZ Detoxification Services for Substance Abuse Treatment (ICD-10-PCS; principal; 2016-11-29)
DX: F11.23 Opioid dependence with withdrawal (principal); F14.20 Cocaine dependence, uncomplicated; F12.20 Cannabis dependence, uncomplicated; F17.210 Nicotine dependence, cigarettes, uncomplicated; F43.10 Post-traumatic stress disorder, unspecified; F19.24 Other psychoactive substance dependence with psychoactive substance-induced mood disorder; H90.12 Conductive hearing loss, unilateral, left ear, with unrestricted hearing on the contralateral side; L98.8 Other specified disorders of the skin and subcutaneous tissue; R00.0 Tachycardia, unspecified; Z88.8 Allergy status to other drugs, medicaments and biological substances; Z87.898 Personal history of other specified conditions
CPT/HCPCS: 36415; 80053; 81003; 85027; 86593; 87389; 93005; 93010

== ENCOUNTER 2024-02-27 14:20 | Inpatient (IN) | payer OTHER ==
[2024-02-27 14:50] VITALS: BMI 19.0
[2024-02-27] MEDS ORDERED: MAG HYDROX/AL HYDROX/SIMETH 30 ML UNIT-DOSE CUP PO PRN (15:10)
[2024-02-27] MEDS ORDERED: LOPERAMIDE HCL 2 MG CAPSULE PO PRN (15:10)
[2024-02-27] MEDS ORDERED: POLYETHYLENE GLYCOL (HEALTHYLAX) 3350 17 GM PACKET PO PRN (15:10)
[2024-02-27] MEDS ORDERED: NICOTINE POLACRILEX 4 MG GUM BUC PRN (15:10)
[2024-02-27] MEDS ORDERED: guaiFENesin 600 MG TABLET.ER (FP) PO PRN (15:10)
[2024-02-27] MEDS ORDERED: BENZOCAINE/MENTHOL (CHLORASEPTIC ) LOZENGE MM PRN (15:10)
[2024-02-27] MEDS ORDERED: cloNIDine HCL 0.1 MG TABLET PO PRN (15:10)
[2024-02-27] MEDS ORDERED: MAGNESIUM HYDROX 2400MG/30ML ORAL SUSPENSION 30 ML CUP PO PRN (15:10)
[2024-02-27] MEDS ORDERED: DICYCLOMINE HCL 10 MG CAPSULE PO PRN (15:10)
[2024-02-27] MEDS ORDERED: NALOXONE (NARCAN) HCL 4 MG/0.1 ML SPRAY NS PRN (15:10)
[2024-02-27] MEDS ORDERED: BISMUTH SUBSALICYLATE 262 MG/15 ML BTL PO PRN (15:10)
[2024-02-27] MEDS ORDERED: BENZONATATE 200 MG CAPSULE PO PRN (15:10)
[2024-02-27] MEDS ORDERED: methaDONE HCL 10 MG TABLET (FOR DETOX USE ONLY) PO PRN (15:10)
[2024-02-27] MEDS ORDERED: IBUPROFEN 400 MG TABLET (FP) PO PRN (15:10)
[2024-02-27] MEDS ORDERED: methaDONE HCL 10 MG TABLET (FOR DETOX USE ONLY) ONE (15:38)
[2024-02-27] MEDS ORDERED: NICOTINE 21 MG/24 HOURS TOPICAL PATCH ONE (15:38)
[2024-02-27] MEDS: NICOTINE 21 MG/24 HOURS TOPICAL PATCH TD SCH (15:42)
[2024-02-27] MEDS: methaDONE HCL 10 MG TABLET (FOR DETOX USE ONLY) PO ONE (15:44)
[2024-02-27] MEDS: ACETAMINOPHEN 325 MG TABLET (FP) PO PRN (22:43)
[2024-02-27] MEDS: MUPIROCIN 2% TOPICAL OINTMENT 22 GM TUBE TP SCH (22:45)
[2024-02-27] MEDS: THIAMINE 100 MG TABLET PO SCH (22:46)
[2024-02-27] MEDS: MELATONIN 5 MG TABLETS PO SCH (22:46)
[2024-02-28] MEDS: TAMSULOSIN HCL 0.4 MG CAP PO SCH (08:09)
[2024-02-28] MEDS: methaDONE HCL 10 MG TABLET (FOR DETOX USE ONLY) PO ONE (10:24)
[2024-02-28] MEDS: METHOCARBAMOL 500 MG TABLET PO PRN (10:25)
[2024-02-28] MEDS: PRENATAL VITAMINS W/ FOLIC ACID TABLET (FP) PO SCH (10:25)
[2024-02-28 11:09] LABS: CHLORIDE 105 mmol/L (98-107); SODIUM 141 mmol/L (136-145)
[2024-02-28 11:11] LABS: HEMATOCRIT 34.4 % (35.4-49); HEMOGLOBIN 11.1 GM/dL (11.7-16.9); MCH 27.4 pg (25.7-33.7); MCHC 32.3 g/dl (32.0-35.9); MEAN CELL VOLUME 84.9 fl (80-96); PLATELET COUNT 356 10^3/uL (134-434); RBC 4.06 M/mm3 (4.00-5.60); RDW 14.9 % (11.9-15.9); WHITE BLOOD COUNT 6.4 K/mm3 (4.0-10.0)
[2024-02-28 11:13] LABS: ALBUMIN 2.8 g/dl (3.4-5.0); ANION GAP 5 mmol/L (4-13); BLOOD UREA NITROGEN 12.9 mg/dL (7-18); CALCIUM 9.3 mg/dL (8.5-10.1); CO2 31 mmol/L (21-32); GLUCOSE,RANDOM 83 mg/dL (74-106)
[2024-02-28 11:16] LABS: CREATININE 0.7 mg/dL (0.55-1.3); SGOT/AST 18 U/L (15-37); SGPT/ALT 20 U/L (13-61)
[2024-02-28 11:17] LABS: BILIRUBIN,TOTAL 0.4 mg/dL (0.2-1); TOT PROT 6.5 g/dl (6.4-8.2)
[2024-02-28 11:19] LABS: ALK PHOS 83 U/L (45-117)
[2024-02-28] MEDS: amLODIPine BESYLATE 5 MG TABLET (FP) PO SCH (17:18)
[2024-02-28] MEDS: IBUPROFEN 600 MG TABLET (FP) PO PRN (17:19)
[2024-02-28] MEDS: hydrOXYzine PAMOATE 25 MG CAPSULE (FP) PO PRN (22:41)
[2024-02-29] MEDS: LIDOCAINE 5% TOPICAL PATCH TP SCH (12:40)
[2024-02-29] MEDS: LIDOCAINE PATCH REMOVAL MC SCH (22:17)
[2024-03-01] MEDS: methaDONE HCL 10 MG TABLET (FOR DETOX USE ONLY) PO ONE (09:43)
[2024-03-02] MEDS: ONDANSETRON *ODT* 4 MG TABLET SL PRN (09:59)
[2024-03-03] MEDS: methaDONE HCL 10 MG TABLET (FOR DETOX USE ONLY) PO ONE (09:07)
[2024-03-03] MEDS: NALOXONE (NYS OPIOID OVERDOSE PROGRAM) 4 MG/0.1 ML SPRAY NS SCH (17:23)
[2024-03-04 08:39] VITALS: BP 130/83; PULSE 79; RESP 17; TEMP 97.7
== END 2024-03-04 09:20 | disposition other institution (70) | DRG 773 ==
LOC: YASAS 14:20 → Y6N 15:57
PROVIDERS: ADMIT Allergy & Immunology; ATTEND Surgery
PROC: HZ2ZZZZ Detoxification Services for Substance Abuse Treatment (ICD-10-PCS; principal; 2024-02-27)
DX: F11.23 Opioid dependence with withdrawal (principal); F14.20 Cocaine dependence, uncomplicated; F12.20 Cannabis dependence, uncomplicated; F17.210 Nicotine dependence, cigarettes, uncomplicated; G47.00 Insomnia, unspecified; H90.12 Conductive hearing loss, unilateral, left ear, with unrestricted hearing on the contralateral side; I10 Essential (primary) hypertension; N40.0 Benign prostatic hyperplasia without lower urinary tract symptoms
CPT/HCPCS: 36415; 80053; 80307; 85027; 86780; 93005; 93010; Q0162